=== PATIENT | female | born 1995 | race Caucasian/White ===

== ENCOUNTER 2019-12-11 18:33 | Emergency (ER) | payer BC ==
[2019-12-11] MEDS ORDERED: Ketorolac 60 MG/2 ML SDV IM ONE (19:38)
[2019-12-11] MEDS ORDERED: Acetaminophen/HYDROcodone 325-5 MG Tab PO ONE (19:38)
--- NOTE | 2019-12-11 19:45 | EDM.PDOC ---
ED HPI GENERAL MEDICAL PROBLEM - General Chief Complaint: Back Pain or Injury Stated Complaint: LEG PAIN Time Seen by Provider: 12/11/19 19:05 Source of Information: Reports: Patient, RN Notes Reviewed - History of Present Illness INITIAL COMMENTS - FREE TEXT/NARRATIVE: 24 yr old female with onset of R low back pain last evening, much worse today, now mild ache at rest but "severe" pain with motion or walking. No fever, chills, N/V, or voiding sx. Does not radiate. Right Lower Back Pain Score (Numeric/FACES): 10 - Related Data Allergies Allergy/AdvReac Type Severity Reaction Status Date / Time No Known Allergies Allergy Verified 12/11/19 19:01 Home Meds: Home Meds Acetaminophen/HYDROcodone [[place] 325-5 MG] 1 tab PO Q6H PRN #7 tablet 12/11/19 [Rx] Naproxen [Naprosyn] 500 mg PO Q12HR #14 tab 12/11/19 [Rx] Past Medical History - Past Surgical History HEENT Surgical History: Reports: Oral Surgery Social & Family History - Tobacco Use Smoking Status *Q: Never Smoker ED ROS GENERAL - Review of Systems Review Of Systems: See Below Constitutional: Denies: Fever, Chills HEENT: Reports: No Symptoms Respiratory: Denies: Shortness of Breath, Cough Cardiovascular: Denies: Chest Pain GI/Abdominal: Denies: Abdominal Pain, Nausea, Vomiting Musculoskeletal: Reports: Back Pain. Denies: Leg Pain Skin: Reports: No Symptoms Neurological: Denies: Numbness, Tingling, Weakness ED EXAM, NEURO - Physical Exam Exam: See Below General Appearance: Alert, No Apparent Distress (at rest) Eye Exam: Bilateral Eye: PERRL Head Exam: Atraumatic Neck: Supple Respiratory/Chest: No Respiratory Distress, Lungs Clear, Normal Breath Sounds Cardiovascular: Regular Rate, Rhythm GI/Abdominal: Non-Tender Back Exam: No: CVA Tenderness (L), CVA Tenderness (R) Extremities: Normal Inspection, Normal Range of Motion Skin Exam: Warm, Dry, Normal Color, No Rash Course - Vital Signs Last Recorded V/S: Last Vital Signs Temp 98.4 F 12/11/19 18:58 Pulse 88 12/11/19 18:58 Resp 16 12/11/19 18:58 BP 128/90 12/11/19 18:58 Pulse Ox 97 12/11/19 18:58 - Orders/Labs/Meds Meds: Medications Discontinued Medications Generic Name Dose Route Start Last Admin Trade Name Freq PRN Reason Stop Dose Admin Hydrocodone Bitart/Acetaminophen 1 tab 12/11/19 19:38 12/11/19 19:57 [place] 325-5 Mg PO 12/11/19 19:39 1 tab ONETIME ONE Administration Ketorolac Tromethamine 60 mg 12/11/19 19:38 12/11/19 19:57 Toradol IM 12/11/19 19:39 60 mg ONETIME ONE Administration Departure - Departure Time of Disposition: 19:42 Disposition: Home, Self-Care 01 Condition: Fair Clinical Impression: Back pain Qualifiers: Back pain location: low back pain Chronicity: acute Back pain laterality: right Sciatica presence: without sciatica Qualified Code(s): M54.5 - Low back pain - Discharge Information Prescriptions: Naproxen [Naprosyn] 500 mg PO Q12HR #14 tab Acetaminophen/HYDROcodone [[place] 325-5 MG] 1 tab PO Q6H PRN #7 tablet PRN Reason: Pain Instructions: Acute Back Pain, Adult Referrals: PCP,Not In Area [Primary Care Provider] - Forms: ED Department Discharge, ED Return to Work/School Form Additional Instructions: rest back, no heavy lifting. Alternate ice and heat as needed. Naprosyn 500 mg twice daily for 1 week. Tylenol in between doses for mild to moderate pain or hydrocodone if needed for severe pain. Prescriptions have been sent electronically to [facility], [place], you can pick those up tomorrow morning. Do not drive or work when taking hydrocodone. Follow up clinic if not much better within 3 to 5 days as expected. Sepsis Event Note (ED) - Evaluation Sepsis Screening Result: No Definite Risk - Focused Exam Vital Signs: Vital Signs Temp Pulse Resp BP Pulse Ox 12/11/19 18:58 98.4 F 88 16 128/90 97
== END 2019-12-11 20:43 | disposition home or self-care (01) ==
LOC: JD.ED 18:33
DX: M54.5 Low back pain (principal)
CPT/HCPCS: 96372; 99283; A9270; J1885